=== PATIENT | female | born 1990 | race African-American/Black ===

== ENCOUNTER 2022-05-25 09:12 | Emergency (ER) | payer OTHER, SELFPAY ==
[2022-05-25 09:25] VITALS: BP 123/82; PULSE 69; RESP 16; TEMP 36.8; O2SAT 99
--- NOTE | 2022-05-25 09:30 | ED.FEMALEGU ---
HPI - Female Genitourinary General Chief complaint: Urogenital-Female Stated complaint: yeast infection Time Seen by Provider: 05/25/22 09:30 History of Present Illness HPI Narrative: Isabel Thomas is a 31 yo female with no PMH who comes with yeast infection from change in detergent. Has no concern for STD. Related Data Home Medications Medication Instructions Recorded Confirmed etonogestrel 68 mg subdermal 1 implant subdermal ONCE 05/25/22 05/25/22 implant Allergies Allergy/AdvReac Type Severity Reaction Status Date / Time No Known Allergies Allergy Verified 05/25/22 09:35 Review of Systems Review of Systems: CONSTITUTIONAL: Denies fever, chills, sweats. EYES: Denies visual changes, redness, discharge. ENT: Denies rhinorrhea, congestion, sore throat, otalgia. CARDIOVASCULAR: Denies chest pain, palpitations, edema. RESPIRATORY: Denies dyspnea, wheezing, cough GASTROINTESTINAL: Denies abdominal pain, nausea, vomiting, diarrhea. GENITOURINARY: Denies dysuria, hematuria, 2 days of white abnormal discharge-no concern for STD SKIN: Denies rash or itching. NEUROLOGIC: Denies numbness, or focal weakness. PSYCHIATRIC: Denies anxiety or depression. [facility] Social History Social History (Updated 05/25/22 @ 09:41 by Marisabel Alarcon CNP) Smoking status: Never smoker Alcohol intake: current Exam Narrative: GENERAL: This is a well-nourished, well-developed patient, in mild distress. HEAD: normocephalic, atraumatic. EYES: PERRL. Sclera clear/white. Vision is grossly intact. EARS: External ears normal, auditory canals clear and without drainage, TMs normal without perforation. Hearing grossly intact. NOSE: External nose normal without nasal discharge, nares without redness, no rhinorrhea. THROAT: Mucous membranes moist, posterior pharynx NECK: Neck supple, non-tender CARDIOVASCULAR: Regular rate and rhythm without murmurs, gallops, or rubs. RESPIRATORY: Clear to auscultation. Breath sounds equal bilaterally. No wheezes, rales, or rhonchi. GASTROINTESTINAL: Abdomen soft, non-tender, SKIN: warm, intact with no suspicious lesions or rash, good texture and turgor. NEURO: awake, alert, and oriented to person, place and time. There were no obvious focal neurologic abnormalities. Steady gait EXTREMITIES: Normal range of motion. BACK: Nontender without deformity Course Course Emergency Course: Patient comes with white discharge UA done she has 1+ leukocytes and some blood discussed with her whether she has any burning or dysuria Plan is to treat with Diflucan as well as with Keflex for cystitis Level of Care: Express Care Visit Vital Signs Vital signs: Vital Signs Temperature 98.2 F 05/25/22 09:25 Pulse Rate 69 05/25/22 09:25 Respiratory Rate 16 05/25/22 09:25 Blood Pressure 123/82 05/25/22 09:25 Pulse Oximetry 99 05/25/22 09:25 Oxygen Delivery Room Air 05/25/22 09:25 Temperature 98.2 F 05/25/22 09:25 Pulse Rate 69 05/25/22 09:25 Respiratory Rate 16 05/25/22 09:25 Blood Pressure 123/82 05/25/22 09:25 Pulse Oximetry 99 05/25/22 09:25 Oxygen Delivery Room Air 05/25/22 09:25 MDM - Female Genitourinary Differential Diagnosis Differential diagnosis: Likely urinary tract infection, cystitis and other Lab Data Labs: Urine Glucose Negative Reference Range: Negative Urine Bilirubin Negative Reference Range: Negative Urine Ketone Negative Reference Range: Negative Urine Specific [place] 1.025 Reference Range:1.001-1.035 Urine Blood Trace Reference Range: Negative * * Urine pH
== END 2022-05-25 09:55 | disposition home or self-care (01) ==
PROVIDERS: Emergency Provider Nurse Practitioner
DX: N30.90 Cystitis, unspecified without hematuria (principal); B37.3 Candidiasis of vulva and vagina
CPT/HCPCS: 81003; 87086; 99203; G0463

== ENCOUNTER 2023-01-08 16:43 | Emergency (ER) | payer OTHER, SELFPAY ==
[2023-01-08 16:51] VITALS: BP 122/94; PULSE 60; RESP 16; TEMP 37.1; O2SAT 99
--- NOTE | 2023-01-08 16:52 | ED.DENTAL ---
HPI - Dental/Oral General Chief complaint: Dental/Oral Stated complaint: Dental Pain Time Seen by Provider: 01/08/23 16:52 Source: patient Mode of arrival: ambulatory History of Present Illness HPI Narrative: 32-year-old female presented for complaint of right lower dental pain for about 2 days. She states the tooth has been broken for a long time, but has never had any problems. Endorses mild swelling and gum tenderness. Using Orajel, salt water rinses and mouthwash. Denies recent trauma. Denies nausea, vomiting, diarrhea, fevers or chills. Unable to get in with a new dentist quickly. MD Complaint: tooth pain Related Data Home Medications Medication Instructions Recorded Confirmed etonogestrel 68 mg subdermal 1 implant subdermal ONCE 05/25/22 05/25/22 implant Allergies Allergy/AdvReac Type Severity Reaction Status Date / Time No Known Allergies Allergy Verified 01/08/23 16:45 Review of Systems Review of Systems: CONSTITUTIONAL: Denies body aches, fever, chills ENT: Denies rhinorrhea, congestion, sore throat, or otalgia. Reports dental pain CARDIOVASCULAR: Denies chest pain, palpitations RESPIRATORY: Denies cough or dyspnea. SKIN: Denies rash, itching, or wounds. MUSCULOSKELETAL: Denies myalgia. NEUROLOGIC: Denies headache, numbness, tingling, or weakness. FORMERLY [facility], [facility]–1983 Past Medical History Medical History (Updated 01/08/23 @ 17:04 by Lawanda Vasquez APRN) No pertinent past medical history Social History Social History Smoking status: Never smoker Alcohol intake: current Comments At time of signature, I have reviewed and agree with nursing past medical, surgical, social and family history unless otherwise noted. Please see nursing chart for further information. There is no relevant family history pertinent to the presenting complaint Exam Narrative: GENERAL: Appears in pain; no acute distress. HEAD: Normocephalic, atraumatic. EYES: EOMI. No redness or drainage. Conjunctivae normal. ENT: Dental pain location of #30, broken tooth, mild gum swelling, no active drainage. Mucous membranes pink and moist. TMs normal bilaterally. Throat normal. Uvula midline. NECK: Normal AROM. No lymphadenopathy. CHEST: No respiratory distress. Clear to auscultation. HEART: Regular rate and rhythm SKIN: Warm, dry, no rash. Normal skin turgor. NEURO: No focal deficits. Alert and oriented x3. Gait steady. Course Course Emergency Course: Patient is aware of diagnosis, understands and agrees to treatment plan. Anticipatory guidance given. Patient agrees to follow-up as directed and is aware of reasons to seek care at the emergency department. Portions of this record may have been created with voice recognition software Level of Care: Express Care Visit Vital Signs Vital signs: Vital Signs Temperature 98.7 F 01/08/23 16:51 Pulse Rate 60 01/08/23 16:51 Respiratory Rate 16 01/08/23 16:51 Blood Pressure 122/94 H 01/08/23 16:51 Pulse Oximetry 99 01/08/23 16:51 Oxygen Delivery Room Air 01/08/23 16:51 Temperature 98.7 F 01/08/23 16:51 Pulse Rate 60 01/08/23 16:51 Respiratory Rate 16 01/08/23 16:51 Blood Pressure 122/94 H 01/08/23 16:51 Pulse Oximetry 99 01/08/23 16:51 Oxygen Delivery Room Air 01/08/23 16:51 MDM - Dental/Oral MDM Narrative Medical decision making narrative: Patients pain and complaint coupled with physical findings are consistent with dentalgia. There are no focal signs of space occupying lesions that are compromising to the airway; no dysphagia, odynophagia, dysphonia, or dyspnea. No uvular deviation or soft palate edema. The floor of the mouth is soft with no signs of Garrett's Angina; no induration below mandible, no neck pain. Patient is without trismus or drooling and able to swallow secretions. Patient is non-toxic appearing. Advised supportive measures and signs/symptoms to go to
== END 2023-01-08 17:04 | disposition home or self-care (01) ==
PROVIDERS: Emergency Provider Nurse Practitioner Family
DX: K08.89 Other specified disorders of teeth and supporting structures (principal)
CPT/HCPCS: 99213; G0463

== ENCOUNTER 2023-12-06 17:01 | Emergency (ER) | payer OTHER, SELFPAY ==
[2023-12-06 17:10] VITALS: BP 127/93; PULSE 96; RESP 16; TEMP 38.4; O2SAT 99
--- NOTE | 2023-12-06 17:16 | ED.URI ---
HPI - URI/Sore Throat General Chief Complaint: Upper Respiratory Infection Stated Complaint: flu like symptoms Time Seen by Provider: 12/06/23 17:32 Source: patient and RN notes reviewed Mode of arrival: ambulatory Limitations: no limitations History of Present Illness HPI Narrative: 33-year-old female presents with concern for 3 day history of fever, body aches, cough, diarrhea. She reports she has been taking [place] cold medicine. Denies known sick contacts MD elicited complaint: fever and cough Related Data Home Medications Medication Instructions Recorded Confirmed etonogestrel 68 mg subdermal 1 implant subdermal ONCE 05/25/22 12/06/23 implant Allergies Allergy/AdvReac Type Severity Reaction Status Date / Time No Known Allergies Allergy Verified 12/06/23 17:18 Review of Systems Review of Systems: CONSTITUTIONAL: Reports malaise, chills, sweats, or fever. EYES: Denies visual changes, redness, or discharge. ENT: Reports rhinorrhea, congestion. Denies sinus pain, otalgia and sore throat. CARDIOVASCULAR: Denies chest pain, palpitations, or edema. RESPIRATORY: Reports cough. Denies dyspnea. GASTROINTESTINAL: Denies abdominal pain, nausea, vomiting, diarrhea SKIN: Denies rash or itching. MUSCULOSKELETAL: Reports myalgia. NEUROLOGIC: Denies headache. All systems reviewed & are unremarkable except as noted in HPI and below PMFSH Past Medical History Medical History (Updated 12/06/23 @ 17:41 by Amairani Castellano NP) No pertinent past medical history Social History Social History Smoking status: Never smoker Alcohol intake: current Comments At time of signature, agree with nursing past medical, surgical, social and family history. There is no relevant family history pertinent to the presenting complaint Exam Narrative: GENERAL: Well-appearing, well-nourished, and in no acute distress. HEAD: Normocephalic EYES: PERRLA, conjunctivae clear ENT: Nares clear, turbinates edematous and erythematous, clear discharge. Mucous membranes moist. TM pearly moss with dull light reflex bilaterally; no tragal tenderness. Oropharynx not erythematous without lesions. Tonsils not enlarged and without exudate, no drooling, no hoarseness, no trismus, uvula midline. NECK: Supple. No lymphadenopathy CHEST: Clear to auscultation, breath sounds equal. No wheezing, rhonchi, rales, or stridor. No respiratory distress, speaks in full sentences. HEART: Regular rate and rhythm. No murmur heard. SKIN: Warm, dry, no rash. NEURO: Alert and oriented x3. PSYCH: Normal mood and affect Course Course Emergency Course: Patient is aware of diagnosis, understands and agrees to treatment plan. Anticipatory guidance given. Patient agrees to follow-up as directed and is aware of reasons to seek care at the emergency department. Portions of this record may have been created with voice recognition software Level of Care: Express Care Visit Vital Signs Vital signs: Vital Signs Temperature 101.1 F H 12/06/23 17:10 Pulse Rate 96 12/06/23 17:10 Respiratory Rate 16 12/06/23 17:10 Blood Pressure 127/93 H 12/06/23 17:10 Pulse Oximetry 99 12/06/23 17:10 Oxygen Delivery Room Air 12/06/23 17:10 Temperature 101.1 F H 12/06/23 17:10 Pulse Rate 96 12/06/23 17:10 Respiratory Rate 16 12/06/23 17:10 Blood Pressure 127/93 H 12/06/23 17:10 Pulse Oximetry 99 12/06/23 17:10 Oxygen Delivery Room Air 12/06/23 17:10 Reviewed. MDM - URI/Sore Throat MDM Narrative Medical decision making narrative: Differential diagnosis considered: Chan[place] virus, strep pharyngitis, allergic rhinitis, upper respiratory tract infection, sinusitis, rhinosinusitis, nasopharyngitis. viral pharyngitis, otitis media, otitis externa, pneumonia, bronchitis, viral cough syndrome, viral syndrome, and influenza. Exam findings show no acute concerns or changes; patient is n
== END 2023-12-06 17:44 | disposition home or self-care (01) ==
PROVIDERS: Emergency Provider Nurse Practitioner
DX: J10.1 Influenza due to other identified influenza virus with other respiratory manifestations (principal); Z20.822 Contact with and (suspected) exposure to COVID-19
CPT/HCPCS: 87426; 87804; 99213; G0463